=== PATIENT | female | born 1970 | race Caucasian/White ===

== ENCOUNTER → 2017-02-02 | Outpatient (CLI) | payer BC | LOC: BMCIMAGING 13:05 | PROVIDERS: ATTEND Podiatrist Foot & Ankle Surgery | DX: M20.11 Hallux valgus (acquired), right foot (principal); M20.12 Hallux valgus (acquired), left foot; M19.071 Primary osteoarthritis, right ankle and foot; M19.072 Primary osteoarthritis, left ankle and foot ==

== ENCOUNTER 2017-05-20 12:05 | Day surgery (SDC) | payer BC ==
--- NOTE | 2017-05-20 10:09 | PDGENHP ---
History and Physical History and Physical: Assessment and Plan: 1. Genuine stress incontinence, female Yi has straightforward genuine stress urinary incontinence with a mobile urethra. She has failed conservative management. We discussed all options and she is interested in a mid urethral sling procedure. This likely will be a retropubic approach given her long distance running. Subjective: Patient ID: iY Barrow is a 46 y.o. female who presents to [facility] for urinary incontinence. HPI Yi is a 46-year-old para 1 woman using a Mirena IUD for contraception. She attended a lecture I gave last summer on urinary incontinence. She has a 5 year history of urinary leakage with coughing laughing sneezing and especially running. She runs anywhere from 5-10 miles per day 5 times per week. However she has discontinued running because of the leaking. This started after the of her child. It was a relatively uneventful vaginal delivery. She has tried pelvic floor physical therapy as well as an intone device. None have provided much benefit. PastMedicalHistory Past Medical History: Diagnosis Date Abnormal Pap smear of cervix 1999 PastSurgicalHistory Past Surgical History: Procedure Laterality Date LEEP 1999 dysplasia CURRENT MEDICATIONS: Current Outpatient Prescriptions Medication Sig buPROPion (WELLBUTRIN SR) 200 mg 12 hr tablet Take 1 tablet by mouth 2 times daily. FLUTICASONE PROPIONATE (FLONASE NA) tretinoin (RETIN-A) 0.1 % cream Apply topically nightly at bedtime. zolpidem (AMBIEN) 5 mg tablet 1 tablet. TAKES NEEDED ABOUT 3-4 WEEK No current facility-administered medications for this visit. ALLERGIES: Patient has no known allergies. I have reviewed, verified and agree with the past medical, surgical, , family, social and ROS history as documented by the RN today. Objective: Vital Signs: Visit Vitals Pulse 95 Temp 36.9 C (98.4 F) (Tympanic) Ht 1.588 m (5' 2.5") Wt 53.1 kg (117 lb) LMP 03/12/2017 SpO2 97% BMI 21.06 kg/m Physical Exam Gen: This is an alert, well developed woman in no distress. Neuro: She moves all extremities. Psych: She is appropriate, oriented, with normal affect. Neck: No thyroid enlargement, adenopathy, or tenderness. Lungs: Clear to ascultation, no wheezes or rales. Heart: Regular rate and rhythm without obvious murmurs. Abdomen: Soft, non-tender, without guarding, rebound, or masses. Extremities: No edema or cyanosis. Pelvic: Normal external genitalia. Non-gaping introitus, vagina without discharge, adequately estrogenized, no significant prolapse. Cervix without lesions or discharge. Uterus normal sized, mobile, non-tender. Adnexa non- tender without enlargement. Urethra is mobile. She has obvious leakage of urine with strong coughing. DATA: I have reviewed the pertinent medical records. TIME/COMMUNICATION: I personally spent a total of 35 minutes. Of that 25 minutes was counseling/ coordination of patient's care. See my note above for details. Rigo Epps MD Board Certified Female Pelvic Medicine and Reconstructive Surgery Director of Minimally Invasive Gynecologic Surgery, [facility] Surgeon in Minimally Invasive Gynecologic Surgery [facility] Surgeon in Robotic Surgery
--- NOTE | 2017-05-20 12:07 | PDANEPAE ---
ANE History of Present Illness 46 year old female w/ PMHx of migraines and depression presents for retropubic sling. ANE Past Medical History - Cardiovascular History Hx Hypertension: No Hx Arrhythmias: No Hx Chest Pain: No Hx Coronary Artery / Peripheral Vascular Disease: No Hx CHF / Valvular Disease: No Hx Palpitations: No Cardiovascular History Comment: HTN W/ - Pulmonary History Hx COPD: No Hx Asthma/Reactive Airway Disease: No Hx Recent Upper Respiratory Infection: No Hx Oxygen in Use at Home: No Hx Sleep Apnea: No Sleep Apnea Screening Result - Last Documented: Positive - Neurologic History Hx Cerebrovascular Accident: No Hx Seizures: No Hx Dementia: No Neurologic History Comment: OCCAS MIGRAINES - Endocrine History Hx Diabetes: No Hypothyroid: No Hyperthyroid: No Obesity: no - Renal History Hx Renal Disorders: No Renal History Comment: PROLAPSE - Liver History Hx Hepatic Disorders: No - Neurological & Psychiatric Hx Hx Neurological and Psychiatric Disorders: No Neurological / Psychiatric History Comment: DEPRESSION - Cancer History Hx Cancer: No - Congenital Disorder History Hx Congenital Disorders: No - GI History Hx Gastrointestinal Disorders: No - Other Health History Other Health History: NEG - Chronic Pain History Chronic Pain: No - Surgical History Prior Surgeries: LASER CONE PROCEDURE. ORAL SURGERY ANE Review of Systems Review of systems is: negative Review of Systems: - Exercise capacity Exercise capacity: >=4 METS METS (RN): 5 METS ANE Patient History - Allergies Allergies/Adverse Reactions: No Known Allergies Allergy (Unverified 12/31/11 14:17) - Home Medications Home medications: home medication list seen and reviewed Home Medications: RX: Bupropion HCl [Wellbutrin 200mg SR] BID 12/31/11 [Last Taken 05/20/17 08:00] RX: Fluticasone Nasal [Flonase Nasal [place]] 2 sprays NASAL DAILY 12/31/11 [Last Taken 02/04/17] Ambien 05/06/17 [Last Taken 05/17/17] MIRENA 05/06/17 [Last Taken Unknown] - NPO status NPO Status: no food or drink >8 hours - Anes Hx Anes Hx: no prior problems - Smoking Hx Smoking Status: Former smoker Marijuana use: No - Alcohol Use Alcohol Use: Rarely - Family Anes Hx Family Hx Anesthesia Complications: MOTHER HAD HALLUCINATORY EPISODE FOR SEVERAL DAYS FOLLOWING ANESTHESIA ANE Labs/Vital Signs - Vital Signs Vital Signs: reviewed preoperatively; see RN documention for details Height: 157.48 cm Weight: 52.163 kg ANE Physical Exam - Airway Neck exam: FROM Mallampati Score: Class 2 Mouth exam: normal dental/mouth exam, small mouth opening (History of TMJ) - Pulmonary Pulmonary: no respiratory distress - Cardiovascular Cardiovascular: regular rate and rhythym - ASA Status ASA Status: II ANE Anesthesia Plan Anesthesia Plan: general endotracheal anesthesia Total IV Anesthesia: No
[2017-05-20] MEDS ORDERED: BUPIVACAINE/EPI 0.5% 30 ML SDV ONE ×2 (12:15→13:53)
[2017-05-20] MEDS ORDERED: ceFAZolin 2 GM/SWFI 2 GM/20 ML SYR IVP ONE (12:16)
[2017-05-20] MEDS ORDERED: LR 1,000 ML IV ONE (12:17)
[2017-05-20] MEDS ORDERED: LIDOCAINE 1% 2 ML INJ ID PRN (12:17)
[2017-05-20] MEDS ORDERED: MIDAZOLAM 2 MG/2 ML VIAL IVP ONE (13:43)
[2017-05-20] MEDS ORDERED: PROPOFOL 200 MG/20 ML VIAL ONE (13:46)
[2017-05-20] MEDS ORDERED: fentaNYL 100 MCG/2 ML INJ ONE (13:46)
[2017-05-20] MEDS ORDERED: LIDOCAINE 2% 5 ML SDV ONE (13:46)
[2017-05-20] MEDS ORDERED: ONDANSETRON 4 MG/2 ML VIAL ONE (13:46)
[2017-05-20] MEDS ORDERED: ROCURONIUM 50 MG/5 ML VIAL ONE (13:46)
[2017-05-20] MEDS ORDERED: DEXAMETHASONE 4 MG/ML VIAL ONE (13:46)
--- NOTE | 2017-05-20 13:51 | POSTOPPROG ---
Post Op Note Date of Operation: 05/20/17 Surgeon: Rigo Epps Anesthesia: GET(General Endotracheal) Pre-op Diagnosis: Stress incontinence Post-op Diagnosis: same Procedure: Retropubic sling, cystoscopy Findings: No evidence of bladder or urethral injury Inf/Abcess present in the surg proc area at time of surgery?: No EBL: Minimal Complications: None
[2017-05-20] MEDS ORDERED: HYDROCODONE/APAP 5/325 TAB PO PRN (14:26)
[2017-05-20] MEDS ORDERED: fentaNYL 100 MCG/2 ML INJ IVP PRN (14:26)
[2017-05-20] MEDS ORDERED: NALOXONE HCL 0.4 MG/ML INJ IVP PRN (14:26)
[2017-05-20] MEDS ORDERED: PROMETHAZINE HCL 25 MG/ML INJ IVP PRN (14:26)
[2017-05-20] MEDS ORDERED: ONDANSETRON 4 MG/2 ML VIAL IVP PRN (14:26)
[2017-05-20] MEDS ORDERED: LR 500 ML IV PRN (14:26)
[2017-05-20] MEDS ORDERED: HYDROmorphONE/DILAUDID 1 MG/ML INJ IVP PRN (14:26)
[2017-05-20] MEDS ORDERED: KETOROLAC 30 MG/1 ML SDV ONE (14:33)
[2017-05-20] MEDS ORDERED: LABETALOL HCL 5 MG/ML 20 ML MDV ONE (15:00)
[2017-05-20] MEDS: LABETALOL HCL 5 MG/ML 20 ML MDV IVP PRN ×2 (15:05→15:18)
[2017-05-20 15:14] VITALS: TEMP 97.7
--- NOTE | 2017-05-20 15:15 | GOP ---
[f rep st] OPERATIVE REPORT DATE OF OPERATION: 05/20/2017 SURGEON: Rigo Epps MD GRINDING ROOM INSPECTOR: None. ANESTHESIA: General. PREOPERATIVE DIAGNOSIS: Stress urinary incontinence. POSTOPERATIVE DIAGNOSIS: Stress urinary incontinence. PROCEDURE PERFORMED: 1. Retropubic sling placement. 2. Cystoscopy. FINDINGS: SPECIMENS: None. ESTIMATED BLOOD LOSS: Scant. DESCRIPTION OF PROCEDURE: Ramona was taken to the operating room where she was identified. Gener al anesthesia was administered and found to be adequate. She was placed in the lithotomy position an d prepared and draped in a normal sterile fashion. A Bernard catheter was placed in her bladder. The mid urethral incision was made with a scalpel. Tunnels were created bilaterally around the ureth ra toward the space of Retzius. The retropubic trocar with the sling attached was passed through the left tunnel, redirected around the symphysis pubis and out through a suprapubic stab incision. The exact same procedure was performed on the patient's right side. Cystoscopy was then performed. There was no evidence of bladder nor urethral injury seen. The ureters had vigorous jets of urine. No ob vious pathology was seen. The sling was then adjusted to allow a small mid urethral gap. The vagina l epithelium was closed with 2-0 Vicryl, skin with 4-0 Monocryl. Anesthesia was reversed. The patie nt was taken the PACU awake and in stable condition. COMPLICATIONS: None. DISPOSITION: Patient stable to PACU. /[id number]/MODL
[2017-05-20 15:52] VITALS: BP 186/120; PULSE 66; RESP 15; O2SAT 94
--- NOTE | 2017-05-20 17:17 | POSTANESTH ---
Post Anesthetic Evaluation Cardiovascular Status: Normal, Stable, Similar to Pre-Op Cond Respiratory Status: Normal, Stable, Similar to Pre-op Cond. Level of Consciousness/Mental Status: Can Participate in Eval, Alert and Oriented Pain Control: Adequate, Prn Tx Ordered Nausea/Vomiting Control: Adequate, Prn Tx Ordered Complications Possibly Related to Anesthesia: None Noted
== END 2017-05-20 16:34 | disposition home or self-care (01) ==
LOC: FSGY 12:05
PROVIDERS: ATTEND Obstetrics & Gynecology
DX: N39.3 Stress incontinence (female) (male) (principal)
CPT/HCPCS: C1771; J0690; J1100; J1885; J2250; J2405; J2704; J3010

== ENCOUNTER → 2017-06-01 | Outpatient (CLI) | payer BC | LOC: FIMAGING 13:36 | PROVIDERS: ATTEND Obstetrics & Gynecology | DX: Z12.31 Encounter for screening mammogram for malignant neoplasm of breast (principal) ==

== ENCOUNTER 2018-07-29 21:02 | Emergency (ER) | payer BC ==
--- NOTE | 2018-07-29 21:22 | EDPHY ---
H & P Stated Complaint: DIFFICULTY URINATING SINCE 11 AM/AFTER SX Time Seen by Provider: 07/29/18 21:15 HPI/ROS: HPI: This is a 48-year-old female who presents with Chief Complaint: DIFFICULTY URINATING SINCE 11 AM/AFTER SX Location: Quality: Urinary hesitancy, urinary dribbling Duration: 10 hr Signs and Symptoms: no fever, no nausea, no vomiting, no hematemesis, no blood in stool, no abdominal bloating, no diarrhea, no back pain, no burning with urination, no vaginal bleeding/discharge, no indigestion, no chest pain, no shortness of breath Timing: Acute, intermittent episodes Severity: Moderate Context: Patient has a history of bladder mesh sling, presents status post right bunionectomy from 9:00 a.m. To 10:30 a.m. This morning with complaints of urinary hesitancy and urinary dribbling of only small amounts since around 11: 00 a.m. She complains of suprapubic fullness and pressure. She denies any urinary burning, urinary frequency, back pain, fever, nausea, vomiting. Last bowel movement yesterday. Passing gas from below. Eating and drinking without difficulty. Modifying Factors: None Comment: ROS: A comprehensive 10 system review of systems is otherwise negative aside from elements mentioned in the history of present illness. MEDICAL/SURGICAL/SOCIAL HISTORY: Medical history: HTN. Mirena IUD. Surgical history: Right bunionectomy, bladder mesh sling Social history: with children, employed. Family history noncontributory. CONSTITUTIONAL: Well-developed, well-nourished, physically fit middle-aged female, and daughter at bedside, awake and alert, no obvious distress HEENT: Atraumatic and normocephalic, PERRL, EOMI. Nares patent; no rhinorrhea; no nasal mucosal edema. Tympanic membranes clear. Oropharynx clear, no exudate and moist pink mucosa. Airway patent. No lymphadenopathy. No meningismus. Cardiovascular: Normal S1/S2, regular rate, regular rhythm, without murmur rub or gallop. PULMONARY/CHEST: Symmetrical and nontender. Clear to auscultation bilaterally. Good air movement. No accessory muscle usage. ABDOMEN: Soft, nondistended, mild suprapubic tenderness with fullness, no rebound, no guarding, no peritoneal signs, no masses or organomegaly. No CVAT. EXTREMITIES: 2/2 pulses, strength 5/5, no deformities, no clubbing, no cyanosis or edema. NEUROLOGICAL: no focal neuro deficits. GCS 15. SKIN: Warm and dry, no erythema. no rash. Good capillary refill. Source: Patient Exam Limitations: No limitations - Personal History LMP (Females 10-55): Extended Cycle BCP/Inj Current Tetanus Diphtheria and Acellular Pertussis (TDAP): Yes - Medical/Surgical History Hx Asthma: No Hx Chronic Respiratory Disease: No Hx Diabetes: No Hx Cardiac Disease: No Hx Renal Disease: No Hx Cirrhosis: No Hx Alcoholism: No Hx HIV/AIDS: No Hx Splenectomy or Spleen Trauma: No Other PMH: R BUNIONECTOMY, BLADDER MESH SLING, HTN - Social History Smoking Status: Former smoker Constitutional: Initial Vital Signs Temperature (C) 37.0 C 07/29/18 21:09 Heart Rate 90 07/29/18 21:09 Respiratory Rate 16 07/29/18 21:09 Blood Pressure 122/85 H 07/29/18 21:09 O2 Sat (%) 94 07/29/18 21:09 O2 Delivery Mode Room Air Allergies/Adverse Reactions: No Known Allergies Allergy (Verified 07/29/18 21:08) Home Medications: Medication Instructions Recorded Bupropion HCl [Wellbutrin 200mg SR] BID 12/31/11 MIRENA 05/06/17 Junel 1 mg-20 Mcg Tablet 07/29/18 Lisinopril-Hctz 10-12.5 mg Tab 07/29/18 Spironolactone 07/29/18 traZODone 07/29/18 Medical Decision Making ED Course/Re-evaluation: Vital signs reviewed and stable upon arrival. Bladder scan ordered and notified by RN 976 mL Bernard catheter inserted and urinalysis ordered 2148: Urinalysis is unremarkable. No indication for antibiotics. Bernard placement and care discussed with Urology follow-up. This is postoperative urinary retention No signs of sepsis, pyelonephritis, urinary tract infection This patient was seen under the supervision of my secondary supervising physician. I evaluated and cared for this patient with attending. Differential Diagnosis: Differential diagnosis includes but is not limited to bladder spasms, urinary retention, urinary tract infection, pyelonephritis, sepsis. - Data Points Laboratory Results: 07/29/18 21:38 Urine Color PALE YELLOW Urine Appearance CLEAR Urine pH 7.0 (5.0-7.5) Ur Specific Jackson 1.006 (1.002-1.030) Urine Protein NEGATIVE (NEGATIVE) Urine Ketones NEGATIVE (NEGATIVE) Urine Blood NEGATIVE (NEGATIVE) Urine Nitrate NEGATIVE (NEGATIVE) Urine Bilirubin NEGATIVE (NEGATIVE) Urine Urobilinogen NEGATIVE EU EU (0.2-1.0) Ur Leukocyte Esterase NEGATIVE (NEGATIVE) Urine Glucose NEGATIVE (NEGATIVE) Departure - Departure Disposition: Home, Routine, Self-Care Clinical Impression: Postoperative urinary retention Condition: Good Instructions: Bernard Catheter Placement and Care (ED), Acute Urinary Retention in Women (ED), Bernard Catheter Removal (DC) Additional Instructions: Please follow-up with Urology on Thursday or Thursday for removal of the Bernard catheter. Referrals: Anjali Kaiser MD [Primary Care Provider] - As per Instructions Khari Grossman MD [Medical Doctor] - As per Instructions
[2018-07-29 22:44] VITALS: BP 121/82
== END 2018-07-29 22:30 | disposition home or self-care (01) ==
DX: R33.9 Retention of urine, unspecified (principal); I10 Essential (primary) hypertension; Z96.0 Presence of urogenital implants; Z97.5 Presence of (intrauterine) contraceptive device; Z98.890 Other specified postprocedural states